=== PATIENT | female | born 1985 | race Caucasian/White ===

== ENCOUNTER 2018-06-02 07:55 | Inpatient (IN) | payer OTHER, SELFPAY ==
--- NOTE | 2018-06-02 | PLAC_PTH ---
PATIENT: BRANDAN ACOSTA LOC: [facility] U#:[id number] AGE/SX: 32/F ROOM: WP021 RE06/02/[address]: Dr. Mee Anne MD : 1985 BED: 1 DIS: 06/05/2018 SPEC #: [id number] RECD: 06/02/18 10:54 STATUS: TEODORO REMine #: [id number] DENISA: 06/02/18 00:[address]: Mee Anne DEPT: SURGICAL PATHOLOGY RECD BY: Reginald Vega ENTERED: 06/06/18 10:55 SP TYPE: PLACENTA OTHR DR: CHERY Flynn Tissues: Placenta, NOS Procedures: Surgery Specimen Level V HEADER OPERATION: Vaginal delivery PRE-OP DIAGNOSIS: Twin delivery TISSUE SUBMITTED: Placenta MICROSCOPIC DIAGNOSIS Twin placenta: Dichorionic and diamniotic twin placenta. Placenta A: Placental disc - third trimester placenta (312 gm). - Two areas of intraparenchymal hemorrhage with calcifications (1.5 cm in greatest dimension). Membranes - no pathologic diagnosis. Umbilical cord - three blood vessels and no pathologic diagnosis. Placenta B: Placental disc - third trimester placenta (424 gm). Membranes - no pathologic diagnosis. Umbilical cord - three blood vessels and no pathologic diagnosis. SJ:shoaib 06/07/18 MICROSCOPIC DESCRIPTION Slides are reviewed. GROSS DESCRIPTION SPECIMEN: TWIN PLACENTA / CLINICAL INFORMATION: A. Weight: A - 2.335 kg; B - 2.86 kg B. Gestational Age: 37 weeks C. Sex: A - Female; B - Male The specimen consists of two placental discs, two umbilical cords, dividing membrane and peripheral membranes. The two discs are connected by the dividing membrane. One umbilical cord contains a clip and is designated placental A. Physical manipulation of the dividing membrane reveals four distinct membranes. PLACENTA A: (with clip) PLACENTAL WEIGHT (POST FIXATION): 312 gm PLACENTAL DIMENSIONS: 17 x 13 x 2.5 cm PLACENTAL SHAPE: Usual ovoid PLACENTAL WEIGHT FOR GESTATIONAL AGE: Within 10-99th percentile MEMBRANES - Present A. Insertion: Marginal B. Site of rupture from edge: Fragmented, distance of rupture cannot be assessed. C. Color of membrane: Baxter-smith D. Abnormalities: None UMBILICAL CORD - Present A. Color: Baxter-smith B. Insertion: Eccentric C. Length: 39 cm D. Diameter: 1.2 cm E. Number of vessels: Three F. Abnormalities: None PLACENTAL DISC - Present A. Color of surface: Baxter-smith B. surface abnormalities: None C. Maternal cotyledons: Intact with minimal tears D. Attached retro placental clot: No clot E. Cut surface: Dark red and spongy F. Lesions: Serial sections of the placental disc reveals two firm baxter-white lesions ranging in size from 1 to 1.5 cm in greatest dimension. G. Separate clot: Absent PLACENTA B: PLACENTAL WEIGHT (POST FIXATION): 424 gm PLACENTAL DIMENSIONS: 17 x 16 x 2.5 cm PLACENTAL SHAPE: Usual ovoid PLACENTAL WEIGHT FOR GESTATIONAL AGE: Within 10-99th percentile MEMBRANES - Present A. Insertion: Marginal B. Site of rupture from edge: Fragmented, distance of rupture cannot be assessed. C. Color of membrane: Baxter-smith D. Abnormalities: None UMBILICAL CORD - Present A. Color: Baxter-smith B. Insertion: Eccentric C. Length: 40 cm D. Diameter: 1.5 cm E. Number of vessels: Three F. Abnormalities: None PLACENTAL DISC - Present A. Color of surface: Baxter-smith B. surface abnormalities: None C. Maternal cotyledons: Intact with minimal tears D. Attached retro placental clot: No clot E. Cut surface: Dark red and spongy F. Lesions: None G. Separate clot: Absent SECTIONS SUBMITTED: 1 - Dividing membrane 2 - Peripheral membrane and umbilical cord placenta A ( end inked) 3 - Placental disc A, lesion 4 - Placental disc A, lesion 5 - Placental disc A 6 - Placental membranes and cord B ( end inked) 7 - Placental disc B 8 - Placental disc B 9 - Placental disc B AM:shoaib 06/06/18 TC:5 CPT: 41465 x2
[2018-06-02] MEDS: Lactated Ringers 1,000 ML 50 ML IV ×4 (09:27→18:08)
[2018-06-02 09:28] LABS: Hematocrit 33.8 % (37-47); Hemoglobin 11.5 g/dl (12.0-15.0); Mean Corpuscular Hgb 30.8 pg (27.0-32.0); Mean Corpuscular Volume 90.6 fL (81-99); Mean Platelet Vol. 10.5 fl (6.2-12.0); Platelet Count 203 K/mm3 (150-450); RBC Distribution Width CV 13.3 % (11.6-14.6); Red Blood Count 3.73 M/mm3 (4.2-5.4); White Blood Count 8.2 K/mm3 (4.4-11.0)
[2018-06-02 09:29] LABS: Scan Indicated on CBC? Y/N NO
[2018-06-02 09:40] LABS: Partial Thromboplast Time 26.5 Seconds (24.1-36.2)
[2018-06-02] MEDS: Mag Hydrox/Al Hydrox/Simeth 30 ML UDC PO (09:56)
[2018-06-02 09:57] VITALS: BMI 42.3
[2018-06-02 09:58] LABS: AST(SGOT) 21 U/L (15-37); Alanine Aminotransfer ALT/SGPT 21 U/L (13-56); Creatinine, Serum 0.43 mg/dL (0.55-1.02); EST Glomerular Filtration Rate 181 mL/min (>60); Est Glom Filt Rate - Afr Amer 219 mL/min (>60); Estimated Creatinine Clearance 167.45 ml/min; Uric Acid 4.5 mg/dL (2.6-6.0)
[2018-06-02] MEDS: Oxytocin 30 units/NS 500 ml 30 UNITS/500 ML IV.SOLN IV (10:30)
[2018-06-02] MEDS: fentaNYL-bupivacaine (epidural) 100 ML BAG EPIDURAL (13:25)
[2018-06-02] MEDS: Acetaminophen 325 MG Tablet PO (15:55)
[2018-06-02] MEDS: Ondansetron 4 MG/2 ML Vial IV (19:23)
--- NOTE | 2018-06-02 19:41 | PCM.HP.OB ---
History Date of Admission: 06/02/18 Final YVETTE: 06/21/18 Final YVETTE Source: LMP Gestational age: 37 Weeks and 2 Days History of this : This is a 32 year-old, 3 para 2 who presents at 37 weeks and 2 days gestation for induction of labor due to chronic hypertension and dichorionic diamniotic twin gestation. She denies any gross vaginal bleeding or leaking of fluid. She has had good movement. She has normal shortness of breath associated with a twin . She denies any epigastric pain or headaches. She denies any visual disturbances. Allergies egg Allergy (Verified 06/02/18 09:58) Swelling pseudoephedrine HCl [From Sudafed] Allergy (Verified 06/02/18 09:58) Other clarithromycin [From Biaxin] Adverse Reaction (Verified 06/02/18 09:58) Upset Stomach Home Medications: Home Medications Albuterol Inhaler [Ventolin Hfa] 2 puff INHALATION Q4H PRN PRN 10/16/15 Loratadine [Claritin] 10 mg PO DAILY 10/16/15 Aspirin, Baby 81 mg PO DAILY 06/02/18 Labetalol [Trandate (Beta Mellissa)] 200 mg PO BID 06/02/18 Smoking Status: Never smoker Alcohol: None Number of Fetus(es): 2 History Past Pregnancies: Past Pregnancies Delivery Date Name GA/Weeks Outcome Route Weight Gender Labor Length Anesthesia Delivery Location Provider FOB Expected Infant Delivery Method: Spontaneous Vaginal Review of Systems Constitutional: Denies: Chills, Fever Eyes: Denies: Blurred vision Cardiovascular: Reports: Edema - trace. Denies: Chest Pain Respiratory: Reports: Shortness of Breath - w/ exertion, normal for twin gestation. Denies: Cough Gastrointestinal: Denies: Abdominal Pain Skin: Denies: Rash Neurological: Denies: Change in Speech Physical Exam General: Alert, Cooperative, No apparent distress Cardiovascular: Regular rate Lungs: Normal air movement Abdomen: Soft, Non-Distended, Tender, Appropriate for Gestational Age Extremities:: Other - edema trace Neurological: Cranial nerves II-XII grossly intact, Neuro grossly intact ELEVATOR PILOT: Normal external genitalia Estimated gestational size: Appropriate for gestational size Assessment/Plan This is a 32 year-old, 3 para 2 at 37-2/7 weeks gestation chronic hypertension. No evidence of superimposed preeclampsia. Labs are normal. Blood pressures are stable. heart tones are reassuring. Will start Pitocin and artificial rupture membranes induction of labor. Position is vertex transverse today. Risk benefits and alternatives to attempted vaginal delivery of twins was discussed with patient, her questions were answered to her satisfaction she desires to proceed. She understands possible need for section urgently for 1 or both twins. She understands she may have one vaginal delivery in 1 section. If she has a she would like tubal. Understands risks of possible breech extraction with second twin. Patient will have epidural for pain control..
--- NOTE | 2018-06-02 19:46 | HP.PCM_ITS ---
History Date of Admission: 06/02/18 Final YVETTE: 06/21/18 Final YVETTE Source: LMP Gestational age: 37 Weeks and 2 Days History of this : This is a 32 year-old, 3 para 2 who presents at 37 weeks and 2 days gestation for induction of labor due to chronic hypertension and dichorionic diamniotic twin gestation. She denies any gross vaginal bleeding or leaking of fluid. She has had good movement. She has normal shortness of breath associated with a twin . She denies any epigastric pain or headaches. She denies any visual disturbances. Allergies egg Allergy (Verified 06/02/18 09:58) Swelling pseudoephedrine HCl [From Sudafed] Allergy (Verified 06/02/18 09:58) Other clarithromycin [From Biaxin] Adverse Reaction (Verified 06/02/18 09:58) Upset Stomach Home Medications: Home Medications Albuterol Inhaler [Ventolin Hfa] 2 puff INHALATION Q4H PRN PRN 10/16/15 Loratadine [Claritin] 10 mg PO DAILY 10/16/15 Aspirin, Baby 81 mg PO DAILY 06/02/18 Labetalol [Trandate (Beta Mellissa)] 200 mg PO BID 06/02/18 Smoking Status: Never smoker Alcohol: None Number of Fetus(es): 2 History Past Pregnancies: Past Pregnancies Delivery Date Name GA/Weeks Outcome Route Weight Gender Labor Length Anesthesia Delivery Location Provider FOB Expected Infant Delivery Method: Spontaneous Vaginal Review of Systems Constitutional: Denies: Chills, Fever Eyes: Denies: Blurred vision Cardiovascular: Reports: Edema - trace. Denies: Chest Pain Respiratory: Reports: Shortness of Breath - w/ exertion, normal for twin g estation. Denies: Cough Gastrointestinal: Denies: Abdominal Pain Skin: Denies: Rash Neurological: Denies: Change in Speech Physical Exam General: Alert, Cooperative, No apparent distress Cardiovascular: Regular rate Lungs: Normal air movement Abdomen: Soft, Non-Distended, Tender, Appropriate for Gestational Age Extremities:: Other - edema trace Neurological: Cranial nerves II-XII grossly intact, Neuro grossly intact FIELD MECHANIC: Normal external genitalia Estimated gestational size: Appropriate for gestational size Assessment/Plan This is a 32 year-old, 3 para 2 at 37-2/7 weeks gestation chronic hypertension. No evidence of superimposed preeclampsia. Labs are normal. Bloo d pressures are stable. heart tones are reassuring. Will start Pitocin and artificial rupture membranes induction of labor. Position is vertex transverse today. Risk benefits and alternatives to attempted vaginal delivery of twins was discussed with patient, her questions were answered to her satisfaction she desires to proceed. She understands possible need for section urgently for 1 or both twins. She understands she may have one vaginal delivery in 1 section. If she has a she would like tubal. Understands risks of possible breech extraction with second twin. Patient will have epidural for pain control..
[2018-06-02] MEDS: Oxytocin 30 units/NS 500 ml 30 UNITS/500 ML IV.SOLN 334 UNITS IV (20:05)
--- NOTE | 2018-06-02 20:26 | PCM.OB.VAG ---
Vaginal Delivery Maternal Presentation: Medically Indicated Induction Method of Induction: Pitocin, Amniotomy Medical Reason for Induction: - - twins, chronic HTN Amniotic Membrane Rupture Type: Artificial - x 2 Amniotic Fluid Description: Clear - x2 Final YVETTE: 06/21/18 Gestational age: 37 Weeks and 2 Days Date of Procedure: 06/02/18 Pre-Operative Diagnosis: Diamniotic dichorionic twin gestation, chronic hypertension, labor Post-Operative Diagnosis: Same Surgery/ Procedure Performed: Spontaneous Vaginal Delivery Type of Anesthesia: Epidural Description of Procedure: A vigorous female infant was delivered YURI over a second-degree perineal laceration. She delivered quickly through the loose nuchal cord. The remainder the infant was delivered with maternal pushing and gentle traction only in less than 15 seconds. At this point, the vertex of baby B was appreciated on vaginal examination. Some gentle downward traction was placed with an abdominal hand and the head settled down against the cervix. I waited until in between contractions to check and make sure there is no cord underneath baby B's head and then ruptured her membranes for clear fluid. Within next contraction, she pushed and baby B's head delivered easily over the small second-degree laceration. The remainder the delivered spontaneously and very quickly without any traction. Cord clamping was delayed approximately 1 minute for both babies. The Pitocin infusion was initiated for active management of the third stage. The infant was attended to by the waiting nursing staff. The placenta was delivered spontaneously and intact. The cervix and vagina were intact. The second-degree perineal laceration was repaired with 3-0 Vicryl suture in a running standard fashion. Sponge and needle counts were correct. A vaginal sweep was completed by me. Presentation: YURI Placental Delivery Description: Spontaneous Placenta Disposition: [facility] Cord Vessel Description: 3 Vessels Nuchal Cord Compression: Without compression Cord Entanglement: Around neck x 1, loose Drain: See to straight drain Estimated Blood Loss: 400 Infant A gender: Female (1 minute): 8 (5 minute): 9 Episiotomy Description: None Laceration: 2nd degree Medications given after delivery: IV Pitocin Complications: None Baby B - Information Amniotic Membrane Rupture Type: Artificial Presentation: YURI - Operative Information Cord Entanglement: None Cord Vessel Description: 3 Vessels B gender: Male (1 minute): 8 (5 minute): 9
[2018-06-02] MEDS: Oxytocin 30 units/NS 500 ml 30 UNITS/500 ML IV.SOLN 167 UNITS IV (20:35)
[2018-06-02] MEDS: Labetalol 200 MG Tablet PO (22:35)
[2018-06-02] MEDS: Naproxen 250 MG Tablet PO (22:35)
[2018-06-02] MEDS: 0.9% Saline Lock 10 ML Syringe IV (22:36)
[2018-06-02] MEDS: Acetaminophen 500 MG Tablet 1000 MG PO (23:21)
[2018-06-03 02:10] VITALS: BP 126/54; PULSE 87; RESP 16; TEMP 36.2; O2SAT 97
[2018-06-03 06:04] VITALS: BP 128/59; PULSE 85; RESP 16; TEMP 36.8; O2SAT 99
[2018-06-03] MEDS: oxyCODONE 5 MG Tablet PO ×3 (06:07→18:54)
--- NOTE | 2018-06-03 07:54 | PCM.PN.OB ---
Subjective: pt seen at bedside, doing well. pt reports good pain control. lochia mild. breast feeding. - Physical Exam General: Alert, Oriented x3 Abdomen: Soft, Non Tender, Non-Distended, - - fundus firm Extremities: No Calf Tenderness Vital Signs Temp Pulse Resp BP Pulse Ox 98.2 F 85 16 128/59 H 99 06/03/18 06:04 06/03/18 06:04 06/03/18 06:04 06/03/18 06:04 06/03/18 06:04 Oxygen Delivery Method Room Air Weight: 115.212 kg Body Mass Index (BMI) 42.3 Intake and Output for Last 24 Hours 06/01/18 06/02/18 06/03/18 23:59 23:59 23:59 Intake Total 1103 / 1103 Output Total 600 / 600 200 / 200 Balance 503 / 503 -200 / -200 Laboratory Tests Past 24 Hrs 06/02/18 06/02/18 06/02/18 09:10 09:10 09:10 WBC 8.2 RBC 3.73 L Hgb 11.5 L Hct 33.8 L MCV 90.6 MCH 30.8 MCHC 34.0 RDW 13.3 RDW Differential 43.0 Plt Count 203 MPV 10.5 PT 13.0 INR 1.0 APTT 26.5 Creatinine Estim Creat Clear Calc Est GFR (MDRD) Af Amer Est GFR (MDRD) Non-Af Uric Acid AST ALT Blood Type A POSITIVE Antibody Screen NEGATIVE 06/02/18 09:10 WBC RBC Hgb Hct MCV MCH MCHC RDW RDW Differential Plt Count MPV PT INR APTT Creatinine 0.43 L Estim Creat Clear Calc 167.45 Est GFR (MDRD) Af Amer 219 Est GFR (MDRD) Non-Af 181 Uric Acid 4.5 AST 21 ALT 21 Blood Type Antibody Screen Medical Necessity - Tobacco Use Smoking Status: Never smoker Assessment/Plan PPD#1, doing well routine care pain mgmt
--- NOTE | 2018-06-03 07:57 | DCINST_ITS ---
Discharge Diet: No Restrictions Discharge Activity: Return to Normal Activity, May not drive while taking narcotic pain medications., May Shower May resume sexual activity in: 4-6 weeks Additional Activity Instructions:: Nothing in the vagina for 4-6 weeks. You may return to work/school in 6 weeks. Call your doctor if your incision/area has: Continuous Slow Oozing, Sudden Increased Bleeding, Increased Pain/ Swelling, Increased Redness, Foul Smelling Discharge Additional Instructions: If you experience any of the following, contact your healthcare provider. * Bleeding that soaks a pad every hour for 2 hours * Fever 100.4 or higher * Unrelieved incision or abdominal pain * Swelling, redness, discharge or bleeding from your incision or episiotomy site * Your incision begins to separate * Problems urinating (including inability to urinate or burning while urinating). * Visual changes * Severe headache * Flu-like symptoms * Pain or redness in one of both of your breasts * Pain, warmth, tenderness or swelling in your legs, especially the calf area * Frequent nausea and vomiting * Symptoms of depression or anxiety If you experience any of the following, call 911 or go to the nearest Emergency Room. * Chest pain * Problems breathing * Seizure activity * Partial or complete paralysis of a body part, slurred speech, weakness or drooping of the face, or a sudden inability to walk or hold your balance Allergies/Adverse Reactions: Allergies egg Allergy (Verified 06/02/18 09:58) Swelling pseudoephedrine HCl [From Sudafed] Allergy (Verified 06/02/18 09:58) Other clarithromycin [From Biaxin] Adverse Reaction (Verified 06/02/18 09:58) Upset Stomach Medications to take at Discharge Albuterol Inhaler [Ventolin Hfa] 2 puff INHALATION Q4H PRN PRN 10/16/15 Loratadine [Claritin] 10 mg PO DAILY 10/16/15 Labetalol [Trandate (Beta Mellissa)] 200 mg PO BID 06/02/18 Naproxen [Naprosyn] 250 - 500 mg PO Q8H PRN PRN #60 tablet 06/03/18 The following prescriptions were given: Naproxen [Naprosyn] 250 - 500 mg PO Q8H PRN PRN #60 tablet PRN Reason: Mild Pain (-3/10) When: Call to make an appointment with your doctor in 6 weeks. If you had elevated Blood Pressure or 4th degree laceration you will need to be seen in 2 weeks. Primary Care Physician: Alejandra Blank PA [Primary Care Provider] - Test Results: Test results from this visit will be discussed in further detail at your follow- up appointment, if applicable.
[2018-06-03] MEDS: Naproxen 250 MG Tablet PO ×2 (08:09→16:37)
[2018-06-03 09:13] VITALS: BP 122/57; PULSE 91; RESP 14; TEMP 37.1; O2SAT 98
[2018-06-03] MEDS: Senna/Docusate Sodium 1 Tablet PO (11:22)
[2018-06-03 14:00] VITALS: BP 130/61; PULSE 98; RESP 15; TEMP 36.6; O2SAT 98
[2018-06-03 16:40] VITALS: BP 125/65; PULSE 112; RESP 20; TEMP 37.1; O2SAT 97
[2018-06-03 20:15] VITALS: BP 130/69; PULSE 120; RESP 18; TEMP 37.1
[2018-06-03] MEDS: Labetalol 200 MG Tablet PO (23:01)
[2018-06-03] MEDS: Acetaminophen 500 MG Tablet 1000 MG PO (23:01)
[2018-06-04 01:25] VITALS: BP 130/68; PULSE 118; RESP 18; TEMP 36.6; O2SAT 98
[2018-06-04] MEDS: Naproxen 250 MG Tablet PO ×3 (04:05→23:27)
[2018-06-04] MEDS: Acetaminophen 500 MG Tablet 1000 MG PO ×2 (07:53→17:55)
[2018-06-04 07:55] VITALS: BP 120/57; PULSE 82; RESP 16; TEMP 36.6; O2SAT 97
--- NOTE | 2018-06-04 09:16 | PCM.PN.OB ---
Subjective: pt seen at bedside, doing well. pt reports some cramping. lochia mild. pt requesting stay one more day- help with feeding for twins. - Physical Exam General: Alert, Oriented x3 Vital Signs Temp Pulse Resp BP Pulse Ox 97.8 F 82 16 120/57 L 97 06/04/18 07:55 06/04/18 07:55 06/04/18 07:55 06/04/18 07:55 06/04/18 07:55 Oxygen Delivery Method Room Air Weight: 115.212 kg Body Mass Index (BMI) 42.3 Intake and Output for Last 24 Hours 06/02/18 06/03/18 06/04/18 23:59 23:59 23:59 Intake Total 1103 / 1103 Output Total 600 / 600 200 / 200 Balance 503 / 503 -200 / -200 Medical Necessity - Tobacco Use Smoking Status: Never smoker Assessment/Plan PPD#2, twins- doing well but needs help with feeding 1) continue with assistance 2) anticipate dc home tomorrow 3) pain mgmt
[2018-06-04] MEDS: oxyCODONE 5 MG Tablet PO (10:09)
[2018-06-04 14:15] VITALS: BP 129/69; PULSE 99; RESP 16; TEMP 37; O2SAT 96
[2018-06-04 19:42] VITALS: BP 121/62; PULSE 96; RESP 18; TEMP 36.8; O2SAT 98
[2018-06-04 22:43] VITALS: BP 125/60; PULSE 96
[2018-06-04] MEDS: Labetalol 200 MG Tablet PO (22:55)
[2018-06-04] MEDS: Senna/Docusate Sodium 1 Tablet PO (22:56)
[2018-06-05 02:52] VITALS: BP 116/66; PULSE 92; RESP 20; TEMP 36.7
[2018-06-05] MEDS: oxyCODONE 5 MG Tablet PO (03:04)
--- NOTE | 2018-06-05 08:39 | PCM.PN.OB ---
Subjective: Pain well controlled, average lochia. Working on breast-feeding. - Physical Exam General: Alert, Cooperative, No apparent distress Vital Signs Temp Pulse Resp BP Pulse Ox 98.1 F 92 20 H 116/66 98 06/05/18 02:52 06/05/18 02:52 06/05/18 02:52 06/05/18 02:52 06/04/18 19:42 Oxygen Delivery Method Room Air Weight: 115.212 kg Body Mass Index (BMI) 42.3 Intake and Output for Last 24 Hours 06/03/18 06/04/18 06/05/18 23:59 23:59 23:59 Output Total 200 / 200 Balance -200 / -200 Medical Necessity - Tobacco Use Smoking Status: Never smoker Assessment/Plan day #3 status post spontaneous vaginal delivery of twins. She is working on breast-feeding, twins are doing well. They are ready for discharge today. Chronic hypertension, well controlled with labetalol. Continue labetalol and DC home. , Okay for Afrin use as needed short-term.
[2018-06-05 09:30] VITALS: BP 129/74; PULSE 93; RESP 18; TEMP 36.9
[2018-06-05] MEDS: Labetalol 200 MG Tablet PO (09:35)
[2018-06-05] MEDS: Oxymetazoline 0.05% 1 SPRAY SPRAY.BTL NASAL (09:35)
[2018-06-05 13:44] VITALS: BP 140/78; PULSE 94; RESP 18; TEMP 37.2; O2SAT 98
[2018-06-07 14:13] LABS: Pathology Specimen OB SEE PATHOLOGY REPORT
--- NOTE | 2018-06-15 13:18 | NURSING ---
Follow up phone call left voice mail
== END 2018-06-05 14:10 | disposition home or self-care (01) | DRG 807 ==
PROVIDERS: Admitting Provider Obstetrics & Gynecology; Family Provider Physician Assistant; PCP Physician Assistant; Referring Provider Obstetrics & Gynecology; Visit Provider Obstetrics & Gynecology
DX: O10.92 Unspecified pre-existing hypertension complicating childbirth (principal); O30.043 Twin pregnancy, dichorionic/diamniotic, third trimester; O70.1 Second degree perineal laceration during delivery; Z79.82 Long term (current) use of aspirin; Z79.899 Other long term (current) drug therapy; Z3A.37 37 weeks gestation of pregnancy; Z37.2 Twins, both liveborn
CPT/HCPCS: 59050; 82565; 84450; 84460; 84550; 85027; 85610; 85730; 86850; 86900; 88307; 99218; J7120; A4216; G0378; J2405

== ENCOUNTER 2018-07-20 11:56 | Day surgery (SDC) | payer OTHER, SELFPAY ==
--- NOTE | 2018-07-19 11:22 | HP.PCM_ITS ---
History and Physical Date of Admission: 07/20/18 Pre-Op History and Physical ? HPI: The patient is a 32 year old female presenting for pre-operative visit. She is scheduled for laparoscopic bilateral salpingectomy, for sterilization on July 20, 2018. ??Procedure discussed along with risks, benefits and complications. ?Other alternatives discussed for management. Consent form signed??Yes.? PAST?MEDICAL?HISTORY PAST MEDICAL HISTORY Diagnosis Date ? Abnormal pap ? ? Abnormal Pap smear of cervix ? ? Adjustment reaction with anxiety and depression 05/13/2016 ? Allergy ? ? Anemia ? ? ASCUS on Pap smear 03/24/2012 ? March 24, 2012?+HRHPV- needs colp ? Breast pain 09/20/2013 ? 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 Lumbar spondylosis 08/29/2013 ? Obesity, unspecified 02/22/2012 ? 02/22/2012 ?She is obese. ?Will plan on doing one-hour GCT at new OB visit. ? ? depression ? ? Seasonal allergies 09/27/2013 ? SI (sacroiliac) joint dysfunction 08/29/2013 ? SI (sacroiliac) joint inflammation (HCC) 08/29/2013 ? Transient hypertension of , unspecified as to episode of care 10/05/2012 ? ? PAST?SURGICAL?HISTORY PAST SURGICAL HISTORY Procedure Laterality Date ? BREAST BIOPSY W/ULTRASOUND GUIDANCE ? 10/03/13 ? U/S needle core UOQ right breast ? EXTRACTION ERUPTED TOOTH/EXR ? 03 ? wisdom teeth ? PAST SURGICAL HISTORY OF ? 96 ? hematoma evacuation pubis after falling on monkey bars ? PCHG NERVE BLOCK, SPINAL ACCESSORY NERVE ? 08/2013 ? TONSILLECTOMY HX ? 2001 ? ? CURRENT?MEDICATIONS ? Current Outpatient Medications: albuterol HFA (PROAIR HFA) 90 mcg/actuation inhaler Inhale 2 Puffs as instructed every 4 hours as needed. Disp: 1 Inhaler Rfl: 0 loratadine (CLARITIN) 10 mg tablet Take 1 tablet by mouth once daily. Disp: Rfl: DULoxetine (CYMBALTA) 20 mg capsule Take 1 capsule by mouth once daily. Disp: 30 capsule Rfl: 1 FOLIC ACID ORAL Take by mouth. Disp: Rfl: labetalol (TRANDATE) 200 mg tablet Take 1 tablet by mouth twice daily. (Patient not taking: Reported on 06/14/2018 ) Disp: 60 tablet Rfl: 2 ? No current facility-administered medications for this visit.? ? ALLERGIES:?Bioxin [Clarithromycin]; Egg; Sudafed [Pseudoephedrine] ? PERSONAL HISTORY:? SOCIAL?HISTORY Social History ??Socioeconomic History ?Marital status: ?Spouse name: REYNA ?Number of children: 2 ?Years of education: 18 ?Highest education level: Not on file ??Social Needs ?Financial resource strain: Not on file ?Food insecurity - worry: Not on file ?Food insecurity - inability: Not on file ?Transportation needs - medical: Not on file ?Transportation needs - non-medical: Not on file ??Occupational History ?Occupation: Department Work Leader ?Employer: [employer] ?Comment: Specialties ??Tobacco Use ?Smoking status: Never Smoker ?Smokeless tobacco: Never Used ??Substance and Sexual Activity ?Alcohol use: No ?Drug use: No ?Sexual activity: Yes ?Partners: Male ??Other Topics ?Concerns: ?Not on file ??Social History Narrative ?Not on file ? FAMILY HISTORY:? FAMILY?HISTORY FAMILY HISTORY Problem Relation Age of Onset ? Arthritis Mother ? ? Hypertension Mother ? ? Lipids Mother ? ? Psychiatry Mother ? ? Thyroid Mother ? ? Cancer Father ?parotid, lung ? Lipids Father ? ? Hypertension Maternal Grandmother ? ? Alzheimer's Disease Maternal Grandmother ? ? other (Other) Maternal Grandmother ?DEMENTIA ? Diabetes Maternal Grandfather ? ? Hypertension Maternal Grandfather ? ? REVIEW OF SYMPTOMS: GENERAL: denies fevers or chills ENDOCRINOLOGY: has not been on steroids Cardiology : denies palpitations or chest pain Respiratory: denies SOB or cough Hematology: denies history of prolonged bleeding or easy bruising or VTE Allergy: Denies history of personal or family history of allergy to anesthesia ? ? PHYSICAL EXAMINATION: ? VITALS:?Height 5' 4.5 (1.638 m), weight 224 lb (101.6 kg), not currently . ? GENERAL:??The patient is well nourished, well hydrated in no acute distress. ?, The patient is oriented to time, place, and person. NECK:?Supple. No lynphadenopathy, normal thyroid, no thyromegaly. LUNGS:?Clear to auscultation bilaterally. no wheezes, rhonchi or rales HEART:?Regular rate and rhythm, Normal heart sounds and No murmurs or gallops ? IMPRESSION: Sterilization request ? PLAN:???The risks/benefits/alternatives and personal involved for the planned laparoscopic bilateral salpingectomy were reviewed with the patient. Her questions were answered to her satisfaction and she desires to proceed. ?Consent was signed. ?I reviewed with her postop instructions and expectations. ? I have reviewed and updated past medical and surgical history, medications and allergies? this H&P performed 07/07/18 Mee Anne M.D.
[2018-07-20 12:23] LABS: Internal QC Validated? YES +Cl - CLEAR BKGD; Pregnancy, Urine Negative Negative
[2018-07-20 12:28] LABS: Hematocrit 38.1 % (37-47); Hemoglobin 12.6 g/dl (12.0-15.0); Mean Corp Hgb Conc 33.1 g/gl (32-36); Mean Corpuscular Hgb 29.2 pg (27.0-32.0); Mean Corpuscular Volume 88.4 fL (81-99); Mean Platelet Vol. 9.7 fl (6.2-12.0); Platelet Count 230 K/mm3 (150-450); RBC Distribution Width CV 12.5 % (11.6-14.6); RBC Distribution Width SD 39.7 fl (35.1-43.9); Red Blood Count 4.31 M/mm3 (4.2-5.4)
[2018-07-20 12:29] LABS: Scan Indicated on CBC? Y/N NO
[2018-07-20 12:35] VITALS: BP 123/71; PULSE 80; RESP 16; TEMP 36.7; O2SAT 100; BMI 37.2
[2018-07-20] MEDS: Acetaminophen 500 MG Tablet 1000 MG PO (12:46)
[2018-07-20] MEDS: Celecoxib 200 MG Capsule PO (12:47)
--- NOTE | 2018-07-20 13:35 | FALS_PTH ---
PATIENT: BRANDAN ACOSTA [place] [facility] [id number] AGE/SX: 32/F ROOM: RE07/20/[address]: Dr. Mee Anne MD : 1985 BED: DIS: 07/20/2018 SPEC #: [id number] RECD: 07/21/18 07:32 STATUS: TEODORO REQ #: [id number] DENISA: 07/20/18 13:[address]: Mee Anne DEPT: SURGICAL PATHOLOGY RECD BY: Vignesh Zarco ENTERED: 07/21/18 10:02 SP TYPE: FALL TUBES OTHR DR: CHERY Flynn Tissues: Fallopian tube Procedures: Surgery Specimen Level II HEADER OPERATION: Laparoscopic salpingectomy PRE-OP DIAGNOSIS: Sterilization request TISSUE SUBMITTED: Bilateral fallopian tubes MICROSCOPIC DIAGNOSIS Right and left fallopian tubes, bilateral partial salpingectomies: Two complete cross-sections of fallopian tubes with no pathologic change. AM:shoaib 07/24/18 MICROSCOPIC DESCRIPTION Slides are reviewed. GROSS DESCRIPTION Received is one container labeled with the patient's name and designated bilateral fallopian tubes. The specimen consists of two fallopian tubes with an average length of 7 cm and has an average diameter of 0.7 cm. Both fallopian tubes have normal fimbriated ends. One fallopian tube contains two small, glistening cysts adjacent to the fimbriated end, each measuring 0.7 cm in greatest dimension. One fallopian tube is inked black. Systems Security Consultant sections are submitted in one cassette including paratubal cysts. / AM:shoaib 07/21/18 TC:4 CPT: 25784 x2
[2018-07-20] MEDS: Bupivacaine Mpf 0.5% 30 ML VIAL (15:26)
--- NOTE | 2018-07-20 15:28 | DCINST_ITS ---
Discharge Diet: No Restrictions - Increase fluid intake for the next 48 hours. Discharge Activity: Return to Normal Activity, May Drive - when you are no longer taking pain/narcotic meds., May Shower, May Take a Tub Bath - in 7 days Additional Activity Instructions:: Ambulate often the next week after surgery. Nothing in the vagina for 5 days. Call your doctor if your incision/area has: Continuous Slow Oozing, Sudden Increased Bleeding, Increased Pain/ Swelling, Increased Redness, Foul Smelling Discharge Call your doctor if you observe: Fever of 101 or Higher Allergies/Adverse Reactions: Allergies egg Allergy (Verified 07/19/18 13:13) Swelling pseudoephedrine HCl [From Sudafed] Allergy (Verified 07/19/18 13:13) Other clarithromycin [From Biaxin] Adverse Reaction (Verified 07/19/18 13:13) Upset Stomach Medications to take at Discharge Albuterol Inhaler [Ventolin Hfa] 2 puff INHALATION Q4H PRN PRN 10/16/15 Loratadine [Claritin] 10 mg PO PRN PRN 10/16/15 Labetalol [Trandate (Beta Mellissa)] 200 mg PO BID 06/02/18 Duloxetine Hcl [Cymbalta] 20 mg PO DAILY 07/19/18 Hydrocodone/Acetaminophen [[place] 5-325 Tablet] 1 - 2 each PO Q6H PRN PRN #15 tablet 07/20/18 Ibuprofen [Motrin] 600 mg PO Q6H PRN #60 tablet 07/20/18 The following prescriptions were given: Hydrocodone/Acetaminophen [[place] 5-325 Tablet] 1 - 2 each PO Q6H PRN PRN #15 tablet PRN Reason: Pain Ibuprofen [Motrin] 600 mg PO Q6H PRN #60 tablet PRN Reason: Pain Primary Care Physician: Alejandra Blank PA [Primary Care Provider] - Test Results: Test results from this visit will be discussed in further detail at your follow- up appointment, if applicable. Please Follow Up With: Mee Anne MD - [phone] When: 2-4 weeks or as needed
--- NOTE | 2018-07-20 16:25 | PCM.OPRPT ---
Report of Operation Date of Procedure: 07/20/18 Pre-Operative Diagnosis: desires sterilization Post-Operative Diagnosis: same Surgery/Procedure Performed:: laparoscopic bilateral salpingectomy Description of Surgical Findings:: Normal tubes and ovaries bilaterally Type of Anesthesia:: General Special Medications: marcaine Specimen's removed: bilteral fallopian tubes Drains: none Estimated Blood Loss (mL): 5 Fluids Replaced: 800 Description of Procedure: Operative note: After informed consent was obtained patient was taken to the operating room she was placed in supine position she was given anesthesia. She was then placed in the [facility] stirrups and she was prepped and draped in normal sterile fashion. Bladder was drained prior to the start of procedure approximately 100cc of clear yellow urine was expelled. At this time attention was turned to the vaginal portion where weighted speculum placed at posterior fornix vagina single-tooth tenaculum was used to gently grasp the internal the cervix. uterus was gently sounded to approximately 8cm. Uterine manipulator was placed without difficulty. Legs then placed in parallel with the abdomen the tenaculum and the weighted speculum were removed. 2 towel clamps were placed superior to umbilicus. After marcaine was injected at umbilicus a small incision was made and a 5 mm trocar was placed under direct visualization. CO2 gas was used to insufflate the intra-abdominal cavity. Upon inspection no gross abnormalities uterus tubes and ovaries appeared to be normal. At this time then the RLQ and LLQ ports were placed again Marcaine was injected small incision was made a knife and the 5 mm trocar was placed. At this time then tubes were traced back to the fimbriated ends. Ligasure was used to coagulate and ligate along mesosalpinx bilaterally until tubes removed completely. Good hemostasis was appreciated. At this time procedure was deemed complete successful. The gas was desufflated on from the intra-abdominal cavity. The trochars were removed. Skin was closed using 4-0 Monocryl in a subcutaneous fashion. Dermabond glue was placed. Instrument lap and needle counts were correct ?2. The uterine manipulator was removed. Vaginal sweep was performed it was negative. There were no complications anticipated normal postoperative course for this patient. Grafts/Implants Used: none - Complications none - Admit VTE Documentation VTE Present on Admission: Yes VTE Mechan Device Prophylaxis: SCD's VTE Pharm Prophylaxis ordered?: No
--- NOTE | 2018-07-20 16:28 | OP.PCM_ITS ---
Report of Operation Date of Procedure: 07/20/18 Pre-Operative Diagnosis: desires sterilization Post-Operative Diagnosis: same Surgery/Procedure Performed:: laparoscopic bilateral salpingectomy Description of Surgical Findings:: Normal tubes and ovaries bilaterally Type of Anesthesia:: General Special Medications: marcaine Specimen's removed: bilteral fallopian tubes Drains: none Estimated Blood Loss (mL): 5 Fluids Replaced: 800 Description of Procedure: Operative note: After informed consent was obtained patient was taken to the operating room she was placed in supine position she was given anesthesia. She was then placed in the the [facility] stirrups and she was prepped and draped in normal sterile fashion. Bladder was drained prior to the start of procedure approximately 100cc of clear yellow urine was expelled. At this time attention was turned to the vaginal portion where weighted speculum placed at posterior fornix vagina single-tooth tenaculum was used to gently grasp the internal the cervix. uterus was gently sounded to approximately 8cm. Uterine manipulator was placed without difficulty. Legs then placed in parallel with the abdomen the tenaculum and the weighted speculum were removed. 2 towel clamps were placed superior to umbilicus. After marcaine was injected at umbilicus a small incision was made and a 5 mm trocar was placed under direct visualization. CO2 gas was used to insufflate the intra-abdominal cavity. Upon inspection no gross abnormalities uterus tubes and ovaries appeared to be normal. At this time then the RLQ and LLQ ports were placed again Marcaine was injected small incision was made a knife and the 5 mm trocar was placed. At this time then tubes were traced back to the fimbriated ends. Ligasure was used to coagulate and ligate along mesosalpinx bilaterally until tubes removed completely. Good hemostasis was appreciated. At this time procedure was deemed complete successful. The gas was desufflated on from the intra-abdominal cavity. The trochars were removed. Skin was closed using 4-0 Monocryl in a subcutaneous fashion. Dermabond glue was placed. Instrument lap and needle counts were correct ?2. The uterine manipulator was removed. Vaginal sweep was performed it was negative. There we re no complications anticipated normal postoperative course for this patient. Grafts/Implants Used: none - Complications none - Admit VTE Documentation VTE Present on Admission: Yes VTE Mechan Device Prophylaxis: SCD's VTE Pharm Prophylaxis ordered?: No
[2018-07-20 16:37] VITALS: BP 123/71; BP 149/81; PULSE 79; RESP 16; TEMP 36.4; O2SAT 92
[2018-07-20 16:45] VITALS: BP 123/71; BP 134/68; PULSE 70; RESP 16; O2SAT 94
[2018-07-20 17:00] VITALS: BP 123/71; BP 127/62; PULSE 75; RESP 16; O2SAT 97
[2018-07-20 17:15] VITALS: BP 117/60; BP 123/71; PULSE 65; RESP 16; TEMP 36.4; O2SAT 95
[2018-07-20] MEDS: HYDROcodone Bitartrate/Apap 5/325 Tablet PO (17:34)
[2018-07-20 18:05] VITALS: BP 115/56; BP 123/71; PULSE 63; RESP 16; TEMP 36.6; O2SAT 100
== END 2018-07-20 18:06 | disposition home or self-care (01) ==
LOC: SDC 11:59 → AC 12:00
PROVIDERS: Family Provider Physician Assistant; PCP Physician Assistant; Referring Provider Obstetrics & Gynecology; Visit Provider Obstetrics & Gynecology
PROC: (CPT 58661; principal; 2018-07-20 13:20)
DX: Z30.2 Encounter for sterilization (principal); I10 Essential (primary) hypertension; D64.9 Anemia, unspecified; F43.23 Adjustment disorder with mixed anxiety and depressed mood; E66.9 Obesity, unspecified; Z68.37 Body mass index [BMI] 37.0-37.9, adult; Z79.899 Other long term (current) drug therapy
CPT/HCPCS: 58661; 81025; 85027; 88302; J7120; J2405

== ENCOUNTER 2019-02-01 09:54 | Day surgery (SDC) | payer OTHER, SELFPAY ==
--- NOTE | 2019-01-25 16:22 | PCM.HP.BLA ---
History and Physical Date of Admission: 02/01/19 HPI: The patient is a 33 year old female presenting for pre-operative visit. She is scheduled for?hysteroscopy, dilation and curettage and Mirena intrauterine system placement, for?menorrhagia, acute blood loss anemia due to menorrhagia on?February 01, 2019. ??Procedure discussed along with risks, benefits and complications. ?Other alternatives discussed for management. Consent form signed??Yes.? PAST?MEDICAL?HISTORY PAST MEDICAL HISTORY Diagnosis Date ? Abnormal pap ? ? Abnormal Pap smear of cervix ? ? Adjustment reaction with anxiety and depression 05/13/2016 ? Allergy ? ? Anemia ? ? ASCUS on Pap smear 03/24/2012 ? March 24, 2012?+HRHPV- needs colp ? Breast pain 09/20/2013 ? 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 Lumbar spondylosis 08/29/2013 ? Obesity, unspecified 02/22/2012 ? 02/22/2012 ?She is obese. ?Will plan on doing one-hour GCT at new OB visit. ? ? depression ? ? Seasonal allergies 09/27/2013 ? SI (sacroiliac) joint dysfunction 08/29/2013 ? SI (sacroiliac) joint inflammation (HCC) 08/29/2013 ? Transient hypertension of , unspecified as to episode of care 10/05/2012 ? ? PAST?SURGICAL?HISTORY PAST SURGICAL HISTORY Procedure Laterality Date ? BREAST BIOPSY W/ULTRASOUND GUIDANCE ? 10/03/13 ? U/S needle core UOQ right breast ? EXTRACTION ERUPTED TOOTH/EXR ? 03 ? wisdom teeth ? PAST SURGICAL HISTORY OF ? 96 ? hematoma evacuation pubis after falling on monkey bars ? PCHG NERVE BLOCK, SPINAL ACCESSORY NERVE ? 08/2013 ? TONSILLECTOMY HX ? 2001 ? ? CURRENT?MEDICATIONS Current Outpatient Medications Medication Sig Dispense Refill ? ibuprofen (MOTRIN) 600 mg tablet TAKE 1 TABLET BY MOUTH EVERY 6 HOURS NEEDED FOR PAIN 60 tablet 1 ? norethindrone (AYGESTIN) 5 mg tablet Take 1 tablet by mouth once daily. ONE PO Q 1 HR UNTIL BLEEDING SLOWS, UP TO 5 TABS TODAY. ?THEN ONE PO QID X 3 DAYS THEN TID X 3 DAYS THEN BID X 3 DAYS THEN ONE QDAY. 40 tablet 1 ? amLODIPine (NORVASC) 5 mg tablet Take 1 tablet by mouth once daily. 30 tablet 2 ? buPROPion XL (WELLBUTRIN XL) 150 mg 24 hr tablet Take 1 tablet by mouth once daily. 90 tablet 1 ? labetalol (TRANDATE) 200 mg tablet Take 1 tablet by mouth twice daily. 180 tablet 1 ? DULoxetine (CYMBALTA) 60 mg capsule Take 1 capsule by mouth once daily. 90 capsule 3 ? albuterol HFA (PROAIR HFA) 90 mcg/actuation inhaler Inhale 2 Puffs as instructed every 4 hours as needed. 1 Inhaler 0 ? loratadine (CLARITIN) 10 mg tablet Take 1 tablet by mouth once daily. ? ? ? No current facility-administered medications for this visit.? ? ALLERGIES:?Bioxin [Clarithromycin]; Egg; Sudafed [Pseudoephedrine] ? PERSONAL HISTORY:? SOCIAL?HISTORY Social History ??Socioeconomic History ?Marital status: ?Spouse name: REYNA ?Number of children: 2 ?Years of education: 18 ?Highest education level: Not on file ??Occupational History ?Occupation: Department Work Leader ?Employer: [employer] ?Comment: Specialties ??Social Needs ?Financial resource strain: Not on file ?Food insecurity: ?Worry: Not on file ?Inability: Not on file ?Transportation needs: ?Medical: Not on file ?Non-medical: Not on file ??Tobacco Use ?Smoking status: Never Smoker ?Smokeless tobacco: Never Used ??Substance and Sexual Activity ?Alcohol use: No ?Drug use: No ?Sexual activity: Yes ?Partners: Male ??Lifestyle ?Physical activity: ?Days per week: Not on file ?Minutes per session: Not on file ?Stress: Not on file ??Relationships ?Social connections: ?Talks on phone: Not on file ?Gets together: Not on file ?Attends tenriism service: Not on file ?Active member of club or organization: Not on file ?Attends meetings of clubs or organizations: Not on file ?Relationship status: Not on file ?Intimate partner violence: ?Fear of current or ex partner: Not on file ?Emotionally abused: Not on file ?Physically abused: Not on file ?Forced sexual activity: Not on file ??Other Topics ?Concerns: ?Not on file ??Social History Narrative ?Not on file ? FAMILY HISTORY:? FAMILY?HISTORY FAMILY HISTORY Problem Relation Age of Onset ? Arthritis Mother ? ? Hypertension Mother ? ? Lipids Mother ? ? Psychiatry Mother ? ? Thyroid Mother ? ? Cancer Father ?parotid, lung ? Lipids Father ? ? Hypertension Maternal Grandmother ? ? Alzheimer's Disease Maternal Grandmother ? ? other (Other) Maternal Grandmother ?DEMENTIA ? Diabetes Maternal Grandfather ? ? Hypertension Maternal Grandfather ? ? REVIEW OF SYMPTOMS: GENERAL: denies fevers or chills, + fatigue and decreased exercise tolerance ENDOCRINOLOGY: has not been on steroids Cardiology : denies palpitations or chest pain Respiratory: denies SOB or cough Hematology: denies history of prolonged bleeding or easy bruising or VTE Allergy: Denies history of personal or family history of allergy to anesthesia ? ? PHYSICAL EXAMINATION: ? VITALS:?not currently . ? GENERAL:??The patient is well nourished, well hydrated in no acute distress. ?, The patient is oriented to time, place, and person. NECK:?Supple. No lynphadenopathy, normal thyroid, no thyromegaly. LUNGS:?Clear to auscultation bilaterally. no wheezes, rhonchi or rales HEART:?Regular rate and rhythm, Normal heart sounds and No murmurs or gallops ? IMPRESSION:?menorrhagia, acute blood loss anemia due to menorrhagia ? PLAN:???The risks/benefits/alternatives and personal involved for the planned?hysteroscopy D&C, Mirena insertion?were reviewed with the patient. Her questions were answered to her satisfaction and she desires to proceed. ?Consent was signed. ?I reviewed with her postop instructions and expectations. ? ? I have reviewed and updated past medical and surgical history, medications and allergies? Mee Anne M.D.
[2019-02-01] VITALS (7 sets, daily range): BP systolic 106–153; BP diastolic 68–88; PULSE 77–90; RESP 16; TEMP 36.3–36.7; O2SAT 100; BMI 43.5
[2019-02-01] MEDS: Ketorolac 30 MG/ML Syringe IV (10:00)
[2019-02-01] MEDS: Acetaminophen 500 MG Tablet 1000 MG PO (10:00)
[2019-02-01 10:21] LABS: Internal QC Validated? YES +Cl - CLEAR BKGD; Pregnancy, Urine Negative Negative
[2019-02-01 10:25] LABS: Hematocrit 32.4 % (37-47); Hemoglobin 10.7 g/dL (12.0-15.0); Mean Corpuscular Hgb 29.9 pg (27.0-32.0); Mean Corpuscular Volume 90.5 fL (81-99); Mean Platelet Vol. 9.7 fl (6.2-12.0); Platelet Count 278 K/mm3 (150-450); RBC Distribution Width CV 11.9 % (11.6-14.6); RBC Distribution Width SD 39.3 fl (35.1-43.9); Red Blood Count 3.58 M/mm3 (4.2-5.4); White Blood Count 5.4 K/mm3 (4.4-11.0)
--- NOTE | 2019-02-01 11:25 | EMB_PTH ---
PATIENT: BRANDAN ACOSTA [place] [facility] [id number] AGE/SX: 33/F ROOM: RE02/01/[address]: Dr. Mee Anne MD : 1985 BED: DIS: 02/01/2019 SPEC #: [id number] RECD: 02/01/19 13:17 STATUS: TEODORO REMine #: [id number] DENISA: 02/01/19 11:[address]: Mee Anne DEPT: SURGICAL PATHOLOGY RECD BY: Vignesh Zarco ENTERED: 02/01/19 13:47 SP TYPE: ENDOM BX/C OTHR DR: CHERY Flynn Tissues: Endometrium, NOS Procedures: Surgery Specimen Level IV HEADER OPERATION: Hysteroscopy, D & C, Mirena IUD PRE-OP DIAGNOSIS: Menorrhagia, acute blood loss anemia TISSUE SUBMITTED: Endometrial curettings MICROSCOPIC DIAGNOSIS Endometrium, curettings: Exogenous hormonal defect consistent with IUD. Focal stromal and glandular breakdown. AM:shoaib 02/02/19 MICROSCOPIC DESCRIPTION Slides are reviewed. GROSS DESCRIPTION Received in fixative is one container labeled with the patient's name and designated endometrial curettings. The specimen consists of multiple fragments of hemorrhagic soft tissue that in aggregate measure 5 x 3 x 0.3 cm. The entire specimen is submitted in two cassettes. / SJ:shoaib 02/01/19 TC:5 CPT: 36990
--- NOTE | 2019-02-01 11:25 | EMB_PTH ---
PATIENT: BRANDAN ACOSTA LOC: [facility] – [place] U#:[id number] AGE/SX: 33/F ROOM: RE02/01/[address]: Dr. Mee Anne MD : 1985 BED: DIS: 02/01/2019 SPEC #: [id number] RECD: 02/01/19 13:17 STATUS: TEODORO REMine #: [id number] DENISA: 02/01/19 11:[address]: Mee Anne DEPT: SURGICAL PATHOLOGY RECD BY: Vignesh Zarco ENTERED: 02/01/19 13:47 SP TYPE: ENDOM BX/C OTHR DR: CHERY Flynn Tissues: Endometrium, NOS Procedures: Surgery Specimen Level IV HEADER OPERATION: Hysteroscopy, D & C, Mirena IUD PRE-OP DIAGNOSIS: Menorrhagia, acute blood loss anemia TISSUE SUBMITTED: Endometrial curettings MICROSCOPIC DIAGNOSIS Endometrium, curettings: Exogenous hormonal defect. Focal stromal and glandular breakdown. AM:shoaib 02/02/19 AM:shoaib 02/05/19 MICROSCOPIC DESCRIPTION Slides are reviewed. GROSS DESCRIPTION Received in fixative is one container labeled with the patient's name and designated endometrial curettings. The specimen consists of multiple fragments of hemorrhagic soft tissue that in aggregate measure 5 x 3 x 0.3 cm. The entire specimen is submitted in two cassettes. / SJ:shoaib 02/01/19 TC:5 CPT: 70638
--- NOTE | 2019-02-01 11:54 | PCM.OPRPT ---
Report of Operation Date of Procedure: 02/01/19 Pre-Operative Diagnosis: Abnormal uterine bleeding, acute blood loss anemia Post-Operative Diagnosis: Same Surgery/Procedure Performed:: Hysteroscopy dilation and curettage with Mirena IUD insertion Description of Surgical Findings:: Left endometrium, no discrete polyps noted. Normal cervix and vagina. smoke and flame specialist: Alejandra Peters Type of Anesthesia:: MAC/Supplemental/Local Anesthesiologist: Efrain Bhatt Special Medications: None Specimen's removed: Endometrial curettings Drains: None Estimated Blood Loss (mL): 10 Fluids Replaced: 800 cc Description of Procedure: The patient was taken to the OR where she was prepped and draped in dorsal lithotomy position. The weighted speculum was placed in the vagina and the anterior lip of the cervix was grasped with a single-tooth tenaculum. A paracervical block was administered with 1% lidocaine with 1-100,000 epinephrine solution. The cervix was dilated serially with Hegar dilators. The 5mm hysteroscope was placed into the uterine cavity and the above findings were noted. Bilateral tubal ostia were identified. The hysteroscope was removed. A gentle sharp curettage was done of the uterine cavity. The instruments were removed from the vagina. The specimen was handed off and sent to pathology. The Mirena intrauterine system was inserted in the usual sterile fashion without difficulty. The strings were trimmed to 3 cm long. All sponge and needle counts were correct. Vaginal sweep was performed by me. The patient was awakened and taken to the recovery room in stable condition. Hysteroscopic ins: 150cc normal saline Hysteroscopic outs:100cc Findings: Endometrial cavity: Normal, no fibroids or polyps noted Cervix: Normal Vagina: Normal Mirena Lot #[id number] Exp. date04/2021 Grafts/Implants Used: None - Complications None - Admit VTE Documentation VTE Present on Admission: No VTE Mechan Device Prophylaxis: SCD's VTE Pharm Prophylaxis ordered?: No
[2019-02-01] MEDS: Lactated Ringers 1,000 ML 75 ML IV ×2 (12:22→12:32)
--- NOTE | 2019-02-01 13:17 | DCINST_ITS ---
Discharge Diet: No Restrictions Discharge Activity: Return to Normal Activity, May Shower, May Take a Tub Bath - in 2 weeks. Allergies/Adverse Reactions: Allergies egg Allergy (Verified 02/01/19 10:29) Swelling pseudoephedrine HCl [From Sudafed] Allergy (Verified 02/01/19 10:29) Other clarithromycin [From Biaxin] Adverse Reaction (Verified 02/01/19 10:29) Upset Stomach Medications to take at Discharge Albuterol Inhaler [Ventolin Hfa] 2 puff INHALATION Q4H PRN PRN 10/16/15 Loratadine [Claritin] 10 mg PO PRN PRN 10/16/15 Labetalol [Trandate (Beta Mellissa)] 200 mg PO BID 06/02/18 Duloxetine Hcl [Cymbalta] 60 mg PO DAILY 07/19/18 Ibuprofen [Motrin] 600 mg PO Q6H PRN #60 tablet 07/20/18 Amlodipine Besylate [Norvasc] 5 mg PO DAILY 01/29/19 Primary Care Physician: Alejandra Blank PA [Primary Care Provider] - Test Results: Test results from this visit will be discussed in further detail at your follow- up appointment, if applicable. Please Follow Up With: Mee Anne MD - [phone] When: 4-6 weeks or as needed
== END 2019-02-01 13:48 | disposition home or self-care (01) ==
LOC: SDC 09:57 → AC 09:57
PROVIDERS: Family Provider Physician Assistant; PCP Physician Assistant; Referring Provider Obstetrics & Gynecology; Visit Provider Obstetrics & Gynecology
PROC: 0U5B8ZZ Destruction of Endometrium, Via Natural or Artificial Opening Endoscopic (ICD-10-PCS; CPT 58558; principal; 2019-02-01 11:10)
DX: N92.0 Excessive and frequent menstruation with regular cycle (principal); D62 Acute posthemorrhagic anemia; I10 Essential (primary) hypertension; F43.23 Adjustment disorder with mixed anxiety and depressed mood; E66.9 Obesity, unspecified; Z68.41 Body mass index [BMI] 40.0-44.9, adult; Z79.899 Other long term (current) drug therapy
CPT/HCPCS: 58300; 58558; 36415; 81025; 85027; 88305; J7120